=== PATIENT | female | born 1960 | race Caucasian/White ===

== ENCOUNTER → 2017-04-02 | Outpatient (CLI) | payer MEDICARE ==
[~2017-04-02] MED LIST: CARAFATE S1 GM/10 ML PO; CYCLOBENZAPRINE10 M1 PO; LEXAPRO 10MG10 MG PO; MACROBID 100 M100 MG PO; NORCO 325 MG-7.1 TAB PO; PANTOPRAZOLE SO40 MG PO; SYNTHROID0.2 MG PO; TRAMADOL 50 MG TAB PO; ZESTRIL20 M1 PO; ZOFRAN4 M2 PO
== END ==
LOC: RAD 17:32 → VAS 17:45 → RAD 18:09
DX: R01.0 Benign and innocent cardiac murmurs (principal)

== ENCOUNTER 2017-05-01 14:00 | Outpatient (RCR) | payer MEDICARE, BC ==
[2017-05-01] MEDS ORDERED: SYNTHROID0.2 MG PO (19:12)
[2017-05-01] MEDS ORDERED: CYCLOBENZAPRINE10 M1 PO (19:13)
[2017-05-01] MEDS ORDERED: ZESTRIL20 M1 PO (19:13)
[2017-05-01] MEDS ORDERED: LEXAPRO 10MG10 MG PO (19:14)
[2017-05-01] MEDS ORDERED: PANTOPRAZOLE SO40 MG PO (21:27)
[2017-05-01] MEDS ORDERED: CARAFATE S1 GM/10 ML PO (21:28)
== END 2017-05-15 13:52 | disposition home or self-care (01) ==
LOC: PT 14:00
DX: M17.0 Bilateral primary osteoarthritis of knee (principal)

== ENCOUNTER 2017-05-01 18:51 | Emergency (ER) | payer MEDICARE, BC ==
[~2017-05-01] VITALS: Ht 167.6 cm; Wt 121.8 kg
[2017-05-01] MEDS ORDERED: SYNTHROID0.2 MG PO (19:12)
[2017-05-01] MEDS ORDERED: ZESTRIL20 M1 PO (19:13)
[2017-05-01] MEDS ORDERED: CYCLOBENZAPRINE10 M1 PO (19:13)
[2017-05-01] MEDS ORDERED: LEXAPRO 10MG10 MG PO (19:14)
[2017-05-01] MEDS ORDERED: PANTOPRAZOLE SO40 MG PO (21:27)
[2017-05-01] MEDS ORDERED: CARAFATE S1 GM/10 ML PO (21:28)
[2017-05-01 21:50] VITALS: BP 147/105
== END 2017-05-01 21:50 | disposition home or self-care (01) ==
LOC: ED 18:51
DX: K29.00 Acute gastritis without bleeding (principal); K27.3 Acute peptic ulcer, site unspecified, without hemorrhage or perforation; I10 Essential (primary) hypertension; Z79.82 Long term (current) use of aspirin
CPT/HCPCS: C9113; J2405; J7030

== ENCOUNTER → 2017-05-02 | Outpatient (CLI) | payer MEDICARE, BC ==
[2017-05-01 21:50] VITALS: BP 147/105
== END ==
LOC: CARDREHAB 09:07
DX: I10 Essential (primary) hypertension (principal)
CPT/HCPCS: A9500

== ENCOUNTER 2017-06-08 14:00 | Emergency (ER) | payer MEDICARE, BC ==
[~2017-06-08] VITALS: Ht 167.6 cm; Wt 118.6 kg
[~2017-06-08 14:00] MED LIST changes: -MACROBID 100 M100 MG PO; -NORCO 325 MG-7.1 TAB PO; -TRAMADOL 50 MG TAB PO; -ZOFRAN4 M2 PO
[2017-06-08] MEDS ORDERED: CARAFATE S1 GM/10 ML PO (14:07)
[2017-06-08] MEDS ORDERED: TRAMADOL 50 MG TAB PO (14:47)
[2017-06-08] MEDS ORDERED: ZOFRAN4 M2 PO (14:48)
[2017-06-08] MEDS ORDERED: NORCO 325 MG-7.1 TAB PO (14:49)
[2017-06-08] MEDS ORDERED: MACROBID 100 M100 MG PO (18:35)
[2017-06-08 18:43] VITALS: BP 159/108
== END 2017-06-08 18:48 | disposition home or self-care (01) ==
LOC: ED 14:00
DX: N39.0 Urinary tract infection, site not specified (principal); I10 Essential (primary) hypertension; R10.33 Periumbilical pain; T47.1X6A Underdosing of other antacids and anti-gastric-secretion drugs, initial encounter; R11.2 Nausea with vomiting, unspecified; R19.7 Diarrhea, unspecified
CPT/HCPCS: J0595; J2060; J2405; J2765; J7030

== ENCOUNTER 2017-06-20 14:30 | Outpatient (RCR) | payer MEDICARE, BC ==
[~2017-06-20 14:30] MED LIST changes: +MACROBID 100 M100 MG PO; +NORCO 325 MG-7.1 TAB PO; +TRAMADOL 50 MG TAB PO; +ZOFRAN4 M2 PO
== END 2017-07-10 17:05 | disposition home or self-care (01) ==
LOC: PT 14:30
DX: Z47.1 Aftercare following joint replacement surgery (principal); Z96.651 Presence of right artificial knee joint

== ENCOUNTER → 2017-07-10 | Outpatient (CLI) | payer MEDICARE, BC | LOC: RAD 08:23 | DX: R74.8 Abnormal levels of other serum enzymes (principal) ==

== ENCOUNTER 2017-11-05 08:30 | Outpatient (RCR) | payer MEDICARE, BC | END 2017-11-05 09:00 | disposition home or self-care (01) | LOC: PT 08:30 | DX: Z47.1 Aftercare following joint replacement surgery (principal); Z96.652 Presence of left artificial knee joint | CPT/HCPCS: G8978-GP; G8979-GP ==

== ENCOUNTER → 2018-01-28 | Outpatient (CLI) | payer MEDICARE, BC | LOC: MAMMO 12:45 → RAD 13:00 → MAMMO 13:00 | DX: Z12.31 Encounter for screening mammogram for malignant neoplasm of breast (principal) ==

== ENCOUNTER → 2019-01-11 | Day surgery (SDC) | payer MEDICARE, BC | LOC: MSO 07:11 | DX: D50.9 Iron deficiency anemia, unspecified (principal); I10 Essential (primary) hypertension; M19.90 Unspecified osteoarthritis, unspecified site; Z90.710 Acquired absence of both cervix and uterus; Z96.653 Presence of artificial knee joint, bilateral | CPT/HCPCS: 00812; J2704; J7120 ==

== ENCOUNTER 2019-09-12 12:08 | Observation (INO) | payer MEDICARE, BC ==
[~2019-09-12] VITALS: Ht 167.6 cm; Wt 132.8 kg
[~2019-09-12 12:08] MED LIST changes: -SYNTHROID0.2 MG PO; +SYNTHROID112 MCG PO
[2019-09-12] MEDS ORDERED: COZAAR100 MG PO (13:08)
[2019-09-12] MEDS ORDERED: HCTZ 25MG25 MG PO (13:08)
[2019-09-12 13:14] LABS: HEMOGLOBIN 13.8 g/dL (12.5-16.0); MEAN CELL VOLUME 87 fl (78-100); MEAN CORPUSCULAR HEMOGLOBIN 28 pg (27-31); MEAN CORPUSCULAR HGB CONC 32 g/dL (33-37); PLATELET COUNT 305 K/mm3 (130-400); RED BLOOD COUNT 4.93 M/mm3 (4.10-5.30); RED CELL DISTRIBUTION WIDTH 13.9 % (11.5-14.5); WHITE BLOOD COUNT 9.8 K/mm3 (4.8-10.8)
[2019-09-12 13:23] LABS: ALBUMIN 3.9 g/dL (3.5-5.0)
[2019-09-12 13:24] LABS: POTASSIUM 3.5 mmol/L (3.5-5.1)
[2019-09-12 13:25] LABS: CALCIUM 9.1 mg/dL (8.3-10.5)
[2019-09-12 13:26] LABS: TOTAL PROTEIN 8.1 g/dL (6.4-8.3)
[2019-09-12 13:28] LABS: TOTAL BILIRUBIN 0.4 mg/dL (0.2-1.2)
[2019-09-12 13:34] LABS: LYMPHOCYTE 12 % (20-51); MONOCYTE 7 % (3-10); NEUTROPHILS 81 % (42-75)
[2019-09-12 13:35] LABS: URINE APPEARANCE HAZY; URINE BILIRUBIN NEGATIVE (NEGATIVE); URINE BLOOD TRACE (NEGATIVE); URINE COLOR YELLOW; URINE GLUCOSE NEGATIVE (NEGATIVE); URINE KETONE NEGATIVE (NEGATIVE); URINE LEUKOCYTE ESTERASE 1+ (NEGATIVE); URINE MUCUS PRESENT (NOT PRESENT); URINE NITRATE NEGATIVE (NEGATIVE); URINE PROTEIN(semi-quant) NEGATIVE (NEGATIVE); URINE UROBILINOGEN NORMAL (NORMAL)
[2019-09-12 19:56] VITALS: BP 131/71
[2019-09-12 23:40] VITALS: BP 113/64
[2019-09-13 03:07] VITALS: BP 115/72
[2019-09-13 06:05] VITALS: BP 95/57
[2019-09-13 06:31] LABS: ALBUMIN 3.2 g/dL (3.5-5.0); POTASSIUM 3.9 mmol/L (3.5-5.1)
[2019-09-13 06:32] LABS: CALCIUM 8.5 mg/dL (8.3-10.5)
[2019-09-13 06:33] LABS: TOTAL PROTEIN 6.7 g/dL (6.4-8.3)
[2019-09-13 06:35] LABS: TOTAL BILIRUBIN 0.4 mg/dL (0.2-1.2)
[2019-09-13 06:41] LABS: EOS # 0.1 (0.04-0.40); EOS % 0.9 % (1.0-5.0); HEMATOCRIT 38.7 % (37.0-47.0); HEMOGLOBIN 12.2 g/dL (12.5-16.0); LYMPH# 1.4 (1.50-4.00); MEAN CELL VOLUME 88 fl (78-100); MEAN CORPUSCULAR HEMOGLOBIN 28 pg (27-31); MEAN CORPUSCULAR HGB CONC 32 g/dL (33-37); MEAN PLATELET VOLUME 10.7 fl (7.4-10.4); MONO # 0.9 (0.20-0.80); NEU # 5.2 (1.40-6.50); PLATELET COUNT 281 K/mm3 (130-400); RED BLOOD COUNT 4.38 M/mm3 (4.10-5.30); WHITE BLOOD COUNT 7.5 K/mm3 (4.8-10.8)
[2019-09-13 11:32] VITALS: BP 119/74
== END 2019-09-13 13:59 | disposition home or self-care (01) ==
LOC: ED 12:08 → MED/SURG 18:10
PROVIDERS: ADMIT Family Medicine
DX: K56.609 Unspecified intestinal obstruction, unspecified as to partial versus complete obstruction (principal); I10 Essential (primary) hypertension; E03.9 Hypothyroidism, unspecified; G89.29 Other chronic pain; Z96.653 Presence of artificial knee joint, bilateral; Z90.710 Acquired absence of both cervix and uterus; M54.9 Dorsalgia, unspecified; M19.90 Unspecified osteoarthritis, unspecified site; Z79.899 Other long term (current) drug therapy; G25.81 Restless legs syndrome
CPT/HCPCS: G0378; J1650; J1885; J2405; J3010; J3490; J7030; Q9967

== ENCOUNTER → 2020-08-30 | Outpatient (CLI) | payer MEDICARE, BC ==
[~2020-08-30] MED LIST changes: +COZAAR100 MG PO; +HCTZ 25MG25 MG PO
== END ==
LOC: MAMMO 11:21
DX: Z12.31 Encounter for screening mammogram for malignant neoplasm of breast (principal)

== ENCOUNTER 2021-03-07 16:19 | Emergency (ER) | payer MEDICARE, BC ==
[2021-03-07] MEDS ORDERED: LEVOTHYROXINE0.2 MG PO (16:28)
[2021-03-07] MEDS ORDERED: PANTOPRAZOLE SO40 MG PO (16:28)
[2021-03-07] MEDS ORDERED: ANACIN 400-321 EACH PO (16:30)
[2021-03-07 17:18] VITALS: BP 140/90
== END 2021-03-07 17:21 | disposition home or self-care (01) ==
LOC: ED 16:19
DX: M79.671 Pain in right foot (principal); I10 Essential (primary) hypertension; E03.9 Hypothyroidism, unspecified; F32.9 Major depressive disorder, single episode, unspecified; Z88.0 Allergy status to penicillin; Z88.8 Allergy status to other drugs, medicaments and biological substances; Z79.82 Long term (current) use of aspirin; Z79.890 Hormone replacement therapy; W01.0XXA Fall on same level from slipping, tripping and stumbling without subsequent striking against object, initial encounter; Y92.009 Unspecified place in unspecified non-institutional (private) residence as the place of occurrence of the external cause

== ENCOUNTER → 2021-09-03 | Outpatient (CLI) | payer MEDICARE, BC ==
[~2021-09-03] MED LIST changes: +ANACIN 400-321 EACH PO; +LEVOTHYROXINE0.2 MG PO
== END ==
LOC: MAMMO 09:21
DX: Z12.31 Encounter for screening mammogram for malignant neoplasm of breast (principal)

== ENCOUNTER → 2022-01-14 | Outpatient (CLI) | payer MEDICARE, BC ==
[2022-01-14 16:23] LABS: BASO # 0.02 K/mm3 (0.02-0.10); EOS # 0.05 K/mm3 (0.04-0.40); EOS % 0.5 % (1.0-5.0); HEMATOCRIT 42.3 % (37.0-47.0); HEMOGLOBIN 13.5 g/dL (12.5-16.0); LYMPH# 1.02 K/mm3 (1.50-4.00); MEAN CELL VOLUME 87 fl (78-100); MEAN CORPUSCULAR HEMOGLOBIN 28 pg (27-31); MEAN CORPUSCULAR HGB CONC 32 g/dL (33-37); MEAN PLATELET VOLUME 9.9 fl (7.4-10.4); MONO # 0.61 K/mm3 (0.20-0.80); NEU # 8.25 K/mm3 (1.40-6.50); PLATELET COUNT 317 K/mm3 (130-400); RED BLOOD COUNT 4.85 M/mm3 (4.10-5.30); RED CELL DISTRIBUTION WIDTH 13.9 % (11.5-14.5)
[2022-01-14 16:31] LABS: ALBUMIN 3.8 g/dL (3.5-5.0); POTASSIUM 4.2 mmol/L (3.5-5.1)
[2022-01-14 16:32] LABS: CALCIUM 9.1 mg/dL (8.3-10.5)
[2022-01-14 16:34] LABS: TOTAL PROTEIN 7.6 g/dL (6.4-8.3)
[2022-01-14 16:35] LABS: TOTAL BILIRUBIN 0.2 mg/dL (0.2-1.2)
[2022-01-14 16:36] LABS: URINE APPEARANCE HAZY; URINE COLOR YELLOW
[2022-01-14 16:37] LABS: URINE BILIRUBIN NEGATIVE (NEGATIVE); URINE BLOOD TRACE (NEGATIVE); URINE GLUCOSE NEGATIVE (NEGATIVE); URINE KETONE NEGATIVE (NEGATIVE); URINE LEUKOCYTE ESTERASE NEGATIVE (NEGATIVE); URINE NITRATE NEGATIVE (NEGATIVE); URINE PROTEIN(semi-quant) TRACE (NEGATIVE); URINE UROBILINOGEN NORMAL (NORMAL); URINE WBC 0-1 /hpf (0-3)
== END ==
LOC: LAB 15:28
PROVIDERS: Family Medicine
DX: R10.84 Generalized abdominal pain (principal); Z98.1 Arthrodesis status; Z90.710 Acquired absence of both cervix and uterus
CPT/HCPCS: Q9967

== ENCOUNTER → 2022-12-23 | Outpatient (CLI) | payer MEDICARE, BC | LOC: MAMMO 11:00 | DX: Z12.31 Encounter for screening mammogram for malignant neoplasm of breast (principal) ==

== ENCOUNTER → 2024-02-24 | Outpatient (CLI) | payer MEDICARE, BC | LOC: MAMMO 09:29 | DX: Z12.31 Encounter for screening mammogram for malignant neoplasm of breast (principal) ==

== ENCOUNTER 2024-08-19 00:43 | Emergency (ER) | payer MEDICARE, BC ==
[~2024-08-19] VITALS: Ht 165.1 cm; Wt 135.0 kg
[2024-08-19] MEDS ORDERED: NS 1,000 ML IV ONE (01:00)
[2024-08-19 01:16] LABS: BASO # 0.02 K/mm3 (0.02-0.10); EOS # 0.46 K/mm3 (0.04-0.40); EOS % 4.2 % (1.0-5.0); HEMATOCRIT 39.5 % (37.0-47.0); HEMOGLOBIN 12.3 g/dL (12.5-16.0); LYMPH# 2.09 K/mm3 (1.50-4.00); MEAN CELL VOLUME 87 fl (78-100); MEAN CORPUSCULAR HEMOGLOBIN 27 pg (27-31); MEAN CORPUSCULAR HGB CONC 31 g/dL (33-37); MEAN PLATELET VOLUME 9.8 fl (7.4-10.4); MONO # 1.04 K/mm3 (0.20-0.80); NEU # 7.45 K/mm3 (1.40-6.50); PLATELET COUNT 301 K/mm3 (130-400); RED BLOOD COUNT 4.53 M/mm3 (4.10-5.30); RED CELL DISTRIBUTION WIDTH 14.8 % (11.5-14.5); WHITE BLOOD COUNT 11.1 K/mm3 (4.8-10.8)
[2024-08-19 01:24] LABS: ALBUMIN 4.1 g/dL (3.4-4.8)
[2024-08-19 01:26] LABS: CALCIUM 9.1 mg/dL (8.3-10.5)
[2024-08-19 01:27] LABS: TOTAL PROTEIN 7.8 g/dL (6.2-8.1)
[2024-08-19 01:29] LABS: TOTAL BILIRUBIN 0.3 mg/dL (0.2-1.2)
[2024-08-19] MEDS ORDERED: Mag/Al Hydrox/Simeth Susp 30 ML CUP PO ONE (01:30)
[2024-08-19] MEDS ORDERED: Ondansetron 4 MG/2 ML VIAL IV ONE (01:30)
[2024-08-19] MEDS ORDERED: FUROSEMIDE20 MG PO (01:37)
[2024-08-19] MEDS ORDERED: ROPINIROLE HY0.25 MG PO (01:38)
[2024-08-19] MEDS ORDERED: PREGABALIN75 MG PO (01:39)
[2024-08-19] MEDS ORDERED: PREGABALIN150 MG PO (01:39)
[2024-08-19] MEDS ORDERED: ZOFRAN ODT4 MG PO (01:40)
[2024-08-19] MEDS ORDERED: Morphine 4 MG/ML VIAL IV ONE ×3 (02:00→04:30)
[2024-08-19] MEDS ORDERED: Iohexol 300 - 100 ML VIAL IV ONE (02:40)
[2024-08-19] MEDS ORDERED: NS 1,000 ML IV SCH (03:30)
[2024-08-19 06:06] VITALS: BP 152/86
== END 2024-08-19 06:09 | disposition short-term general hospital (02) ==
LOC: ED 00:43
PROVIDERS: Family Medicine
DX: R11.2 Nausea with vomiting, unspecified (principal); R00.0 Tachycardia, unspecified; E66.01 Morbid (severe) obesity due to excess calories; Z68.42 Body mass index [BMI] 45.0-49.9, adult
CPT/HCPCS: J2270; J2405; J3360; J7030; Q9967

== ENCOUNTER → 2024-09-01 | Outpatient (CLI) | payer MEDICARE, BC ==
[~2024-09-01] MED LIST changes: +FUROSEMIDE20 MG PO; +PREGABALIN150 MG PO; +PREGABALIN75 MG PO; +ROPINIROLE HY0.25 MG PO; +ZOFRAN ODT4 MG PO
== END ==
LOC: AMSURD 14:04 → RAD 14:04
DX: R06.09 Other forms of dyspnea (principal)

== ENCOUNTER → 2024-09-02 | Outpatient (CLI) | payer MEDICARE, BC ==
[2024-09-02 07:09] LABS: BASO # 0.02 K/mm3 (0.02-0.10); EOS # 0.32 K/mm3 (0.04-0.40); HEMATOCRIT 39.3 % (37.0-47.0); HEMOGLOBIN 12.2 g/dL (12.5-16.0); LYMPH# 1.71 K/mm3 (1.50-4.00); MEAN CELL VOLUME 86 fl (78-100); MEAN CORPUSCULAR HEMOGLOBIN 27 pg (27-31); MEAN CORPUSCULAR HGB CONC 31 g/dL (33-37); MEAN PLATELET VOLUME 9.5 fl (7.4-10.4); MONO # 0.67 K/mm3 (0.20-0.80); NEU # 3.65 K/mm3 (1.40-6.50); PLATELET COUNT 353 K/mm3 (130-400); RED BLOOD COUNT 4.56 M/mm3 (4.10-5.30); RED CELL DISTRIBUTION WIDTH 14.9 % (11.5-14.5); WHITE BLOOD COUNT 6.4 K/mm3 (4.8-10.8)
[2024-09-02 08:07] LABS: CALCIUM 9.3 mg/dL (8.3-10.5)
[2024-09-02 08:08] LABS: TOTAL PROTEIN 7.8 g/dL (6.2-8.1)
[2024-09-02 08:10] LABS: TOTAL BILIRUBIN 0.6 mg/dL (0.2-1.2)
== END ==
LOC: LAB 06:52
PROVIDERS: Physician Assistant
DX: I10 Essential (primary) hypertension (principal); E03.9 Hypothyroidism, unspecified; E78.5 Hyperlipidemia, unspecified; R73.9 Hyperglycemia, unspecified

== ENCOUNTER → 2024-10-01 | Outpatient (CLI) | payer MEDICARE, BC ==
[2024-10-01 10:09] LABS: BASO # 0.02 K/mm3 (0.02-0.10); EOS # 0.21 K/mm3 (0.04-0.40); EOS % 3.7 % (1.0-5.0); HEMOGLOBIN 12.8 g/dL (12.5-16.0); LYMPH# 1.17 K/mm3 (1.50-4.00); MEAN CELL VOLUME 87 fl (78-100); MEAN CORPUSCULAR HEMOGLOBIN 27 pg (27-31); MEAN CORPUSCULAR HGB CONC 31 g/dL (33-37); MEAN PLATELET VOLUME 10.2 fl (7.4-10.4); MONO # 0.63 K/mm3 (0.20-0.80); NEU # 3.72 K/mm3 (1.40-6.50); PLATELET COUNT 304 K/mm3 (130-400); RED BLOOD COUNT 4.74 M/mm3 (4.10-5.30); RED CELL DISTRIBUTION WIDTH 14.8 % (11.5-14.5); WHITE BLOOD COUNT 5.8 K/mm3 (4.8-10.8)
== END ==
LOC: LAB 08:50
PROVIDERS: Internal Medicine Pulmonary Disease
DX: R06.02 Shortness of breath (principal)

== ENCOUNTER → 2024-12-07 | Outpatient (REF) | payer MEDICARE, BC | LOC: LAB 16:38 | DX: U07.1 COVID-19 (principal); J06.9 Acute upper respiratory infection, unspecified ==

== ENCOUNTER → 2025-02-16 | Outpatient (CLI) | payer MEDICARE, BC ==
[2025-02-16 15:49] LABS: BASO # 0.01 K/mm3 (0.02-0.10); EOS # 0.45 K/mm3 (0.04-0.40); EOS % 7.3 % (1.0-5.0); HEMATOCRIT 37.3 % (37.0-47.0); HEMOGLOBIN 11.4 g/dL (12.5-16.0); LYMPH# 1.33 K/mm3 (1.50-4.00); MEAN CELL VOLUME 89 fl (78-100); MEAN CORPUSCULAR HEMOGLOBIN 27 pg (27-31); MEAN CORPUSCULAR HGB CONC 31 g/dL (33-37); MEAN PLATELET VOLUME 10.2 fl (7.4-10.4); MONO # 0.77 K/mm3 (0.20-0.80); NEU # 3.61 K/mm3 (1.40-6.50); PLATELET COUNT 284 K/mm3 (130-400); RED BLOOD COUNT 4.21 M/mm3 (4.10-5.30); RED CELL DISTRIBUTION WIDTH 15.4 % (11.5-14.5); WHITE BLOOD COUNT 6.2 K/mm3 (4.8-10.8)
== END ==
LOC: LAB 15:25
PROVIDERS: Internal Medicine Pulmonary Disease
DX: G25.81 Restless legs syndrome (principal)

== ENCOUNTER → 2025-02-17 | Outpatient (CLI) | payer MEDICARE, BC | LOC: LAB 08:14 | DX: E03.9 Hypothyroidism, unspecified (principal) ==

== ENCOUNTER → 2025-03-09 | Outpatient (CLI) | payer MEDICARE, BC | LOC: MAMMO 13:01 | DX: Z12.31 Encounter for screening mammogram for malignant neoplasm of breast (principal) ==